=== PATIENT | male | born 1990 | race African-American/Black ===

== ENCOUNTER 2017-03-21 03:00 | Emergency (ER) | payer OTHER ==
[~2017-03-21] VITALS: Ht 185.4 cm; Wt 79.4 kg
[2017-03-21] MEDS ORDERED: Surgicel 4in x 8in TOPIC ONE ×2 (03:02→03:15)
[2017-03-21] MEDS ORDERED: IBUPROFEN600 MG ORAL (03:14)
--- NOTE | 2017-03-21 03:15 | Emergency Room Report ---
History of Present Illness General Chief Complaint: Laceration Source: Patient Present Illness HPI Is a 26-year-old male who is right-hand dominant. He presents with chief complaint of right finger laceration. Onset was acute and occurred about 8 hours ago. He was cutting a lemon and sliced his finger. Unable to stop the bleeding. Pain is 10 out of 10. No other injury. Denies any fever chills denies any nausea vomiting. Allergies: Coded Allergies: No Known Allergies (Unverified , 03/21/17) Patient History Past Medical History: see triage record, old chart reviewed Past Surgical History: none Pertinent Family History: none Social History: Denies: smoking Immunizations: UTD Reviewed Nursing Documentation: PMH: Agreed, PSxH: Agreed Nursing Documentation-PMH Past Medical History: No Stated History Review of Systems Eye: Denies: blurred vision, eye pain ENT: Denies: ear pain, nose congestion, throat swelling Respiratory: Denies: cough, shortness of breath Cardiovascular: Denies: chest pain, palpitations Gastrointestinal: Denies: abdominal pain, diarrhea, nausea, vomiting Musculoskeletal: Denies: back pain, joint pain Skin: Denies: rash Neurological: Denies: headache, numbness Endocrine: Denies: increased thirst, increased urine Hematologic/Lymphatic: Denies: easy bruising All Other Systems: negative except mentioned in HPI Physical Exam Vital Signs Date Time Temp Pulse Resp B/P Pulse Ox O2 Delivery O2 Flow Rate FiO2 03/21/17 02:41 98.8 83 18 127/86 96 Room Air vitals normal Sp02 EP Interpretation: reviewed, normal General Appearance: well appearing, no apparent distress, alert Head: normocephalic, atraumatic Eyes: bilateral eye EOMI, bilateral eye PERRL ENT: hearing grossly normal, normal pharynx Neck: full range of motion, supple, no meningismus Respiratory: chest non-tender, lungs clear, normal breath sounds Cardiovascular #1: regular rate, rhythm, no murmur Gastrointestinal: normal bowel sounds, non tender, no mass, no organomegaly, no bruit, non-distended Musculoskeletal: back normal, gait/station normal, normal range of motion, other - Right ring finger: Partial avulsion of the nail and nailbed. Oozing of blood from the nail bed. No tendon laceration. Measure about 4 mm. Psychiatric: mood/affect normal Skin: warm/dry Procedures Laceration/Wound Repair Laceration/Wound Repair : Consent: Verbal Wound Location: upper extremity Wound's Depth, Shape: superficial Wound Length (cm): 1 Wound Explored: clean Irrigated w/ Saline (ccs): 500 Anesthesia: 1% Lidocaine Volume Anesthetic (ccs): 1 Patient Tolerated: Well Complications: None Progress I injected less than 1 mL into the wound. Bleeding stopped. I place a small Surgicel over the wound. Pressure dressing patient with the wound. Patient tolerated procedure without a problem. No active bleeding afterward. Medical Decision Making Diagnostic Impression: Primary Impression: Avulsion, finger tip Qualified Codes: S61.209A - Unspecified open wound of unspecified finger without damage to nail, initial encounter ER Course Patient with partial avulsion of the nail and nailbed. Nothing to be sutured. Bleeding controlled. We'll discharge home with reassurance. Last Vital Signs Date Time Temp Pulse Resp B/P Pulse Ox O2 Delivery O2 Flow Rate FiO2 03/21/17 02:41 98.8 83 18 127/86 96 Room Air Status: improved Disposition: HOME, SELF-CARE Condition: Stable Scripts Ibuprofen* (MOTRIN*) 600 Mg Tablet 600 MG ORAL THREE TIMES A DAY, #30 TAB 0 Refills Prov: KAITLIN ROSAS M.D. 03/21/17 Additional Instructions: Followup with your DrNorah in 7 days. Return if symptom worsen. KAITLIN ROSAS M.D. Mar 21, 2017 03:14
[2017-03-21 03:18] VITALS: BP_SYST 124; BP_SYST 127; BP_DIAS 86
== END 2017-03-21 03:45 | disposition home or self-care (01) ==
LOC: EDBD 03:00 → EMR 03:35
DX: S61.314A Laceration without foreign body of right ring finger with damage to nail, initial encounter (principal); W27.4XXA Contact with kitchen utensil, initial encounter; Y93.G1 Activity, food preparation and clean up; Y92.009 Unspecified place in unspecified non-institutional (private) residence as the place of occurrence of the external cause
CPT/HCPCS: 12001; 99284; Z7502